=== PATIENT | male | born 1970 | race Caucasian/White ===

== ENCOUNTER → 2021-02-10 13:33 | Outpatient (BNVA) | payer OTHER, SELFPAY | PROVIDERS: PCP Internal Medicine; Visit Provider Surgery | DX: K64.5 Perianal venous thrombosis (principal) | CPT/HCPCS: 46600 ==

== ENCOUNTER 2023-11-01 11:33 | Emergency (ER) | payer BC, SELFPAY ==
--- NOTE | ~2023-11-01 | CT_ITS ---
EXAMINATION: CT ABDOMEN AND PELVIS WITHOUT CONTRAST CLINICAL INFORMATION: Flank pain COMPARISON: None available. TECHNIQUE: Multidetector volumetric imaging was performed from the superior aspect of the liver through the pubic symphysis. Sagittal and coronal reformatted images were obtained on the technologist's workstation. This CT examination was performed using dose optimization techniques as appropriate, variously including the following: *Automated exposure control *Adjustment of mA and/or kV according to patient size (this includes techniques or standardized protocols for targeted exams where dose is matched to indication/reason for exam; i.e. extremities or head) *Use of iterative reconstruction technique DLP: 428 mGy-cm FINDINGS: LUNG BASES: There is a 5 mm nodule in the lingula (4:48). The visualized lung bases are otherwise unremarkable. LIVER, GALLBLADDER, AND BILIARY TREE: The liver is normal in size, shape, and attenuation. 0.9 cm water density cyst is noted in the right lobe of the liver (3:12). No concerning solid focal hepatic lesion or biliary ductal dilatation is present. The gallbladder is unremarkable with no evidence of radiopaque gallstones, gallbladder wall thickening, or obvious pericholecystic inflammatory changes. PANCREAS: Unremarkable. SPLEEN: Unremarkable. ADRENAL GLANDS: Unremarkable. KIDNEYS AND URETERS: There is right-sided pelvocaliectasis with dilatation of the ureter down to the level of an obstructing stone at the right UVJ which measures 2 mm. No intrarenal calculi. A benign right upper pole 1.6 cm Bosniak class I renal cyst is noted which requires no additional imaging or follow up. No solid renal masses are seen on either side. The left kidney and ureter appear unremarkable aside from presence of a faint tiny hyperattenuating area in the left mid kidney (see noguera image). BLADDER: Unremarkable. GASTROINTESTINAL TRACT: The small and large bowel are unremarkable. The appendix is unremarkable and filled with some dense material. Air is present as well and there are no inflammatory changes. ABDOMINAL WALL: No significant hernia is appreciated. LYMPH NODES: Normal. VASCULAR: Minimal calcific atherosclerotic changes are present in the aorta and iliofemoral vessels. There is no evidence of an abdominal aortic aneurysm. PELVIC VISCERA: Mild BPH. Seminal vesicles appear normal. OSSEOUS STRUCTURES: Unremarkable. CT/CT abdomen pelvis wo IV con IMPRESSION: 1. Obstructing 2 mm right UVJ calculus with right-sided uretero-pelvocaliectasis. 2. Incidental note made of a 5 mm lingular nodule, benign hepatic cyst, benign right renal cyst which needs no additional imaging or follow up, mild BPH and minimal calcific atherosclerotic changes. According to the UPDATED 2017 Fleischner Society recommendations, the advised follow-up imaging for solid nodules <6 mm in the middle/lower lobes is no routine follow up.
[2023-11-01 11:42] VITALS: BP 156/79; PULSE 65; RESP 18; TEMP 36.6; O2SAT 98; BMI 23.4
--- NOTE | 2023-11-01 11:43 | ED.GENADULT ---
HPI - General Adult General Chief complaint: Urogenital-Male Stated complaint: Kidney pain Time Seen by Provider: 11/01/23 13:20 Source: patient Mode of arrival: ambulatory Limitations: no limitations History of Present Illness HPI narrative: Patient is a 53-year-old male presenting to the emergency department with complaint of severe right flank pain which began last night as well as dark urine and urinary frequency. States he felt like a UTI was coming on for a few days. Also reports syncopal episode related to severe pain. Denies any vomiting or diarrhea but does report nausea. Denies fevers. Denies history of kidney stones. MD complaint: flank pain Onset (ago): hour(s) Location: right Severity: severe Severity scale (1-10): >10 Quality: sharp Pain Consistency: constant Relieving factors: none Exacerbating factors: none Treatments prior to arrival: none Related Data Home Medications Medication Instructions Recorded Confirmed atorvastatin 10 mg tablet 10 mg PO DAILY 02/10/21 bupropion HCl 150 mg 24 hr tablet, 150 mg PO BEDTIME 02/10/21 extended release escitalopram oxalate 10 mg tablet mg PO 02/10/21 Previous Rx's Medication Instructions Recorded ondansetron 4 mg disintegrating 4 mg PO Q8H PRN nausea and 11/01/23 tablet vomiting #12 tabs oxycodone 5 mg tablet 5 mg PO Q8H PRN severe pain (scale 11/01/23 score 7-10) #10 tabs prednisone 20 mg tablet 20 mg PO DAILY #4 tabs 11/01/23 tamsulosin 0.4 mg capsule 0.4 mg PO DAILY #14 caps 11/01/23 Allergies Allergy/AdvReac Type Severity Reaction Status Date / Time No Known Allergies Allergy Verified 11/01/23 11:42 Review of Systems Review of Systems: As per HPI. Yes all other systems are reviewed and are negative Constitutional: Constitutional: Reports as per HPI PMF Past Medical History Onset Date is defined in the Problem List Problems that require an onset date and time if occurred within 24 hrs of arrival to the ED Aortic Dissection and Rupture; Neurologic impairment; Cardiopulmonary Arrest; Endotracheal Intubation; Insertion or Replacement of Mechanical Circulatory Assist Device Medical History (Updated 11/01/23 @ 16:14 by Nancy Siddiqi NP) Thrombosed external hemorrhoid Family History Family History (Updated 02/10/21 @ 13:48 by LUCIA Agosto) Mother Lung cancer Social History Social History (Updated 02/10/21 @ 13:48 by LUCIA Agosto) Alcohol intake: current Alcohol intake frequency: holidays/special occasions only Smoked in Last 30 Days: No Use of substances other than those prescribed or required for medical reasons: No Advance Directives: No Advance Directives Information Provided: Yes Physical Exam ED Vital Signs: Vital Signs - 24 hr 11/01/23 11:42 11/01/23 14:36 Temperature 98 F 97.7 F Pulse Rate 65 68 Respiratory Rate 18 16 Blood Pressure 156/79 H 139/70 Pulse Oximetry 98 98 Oxygen Delivery Method Room Air Room Air BMI result Body Mass Index 23.4 Vital signs have been reviewed and appear to be correct. Blood pressure elevated. Heart rate normal. Respiratory rate normal. Temperature normal. Oxygen saturation normal. Const General: cooperative, healthy appearing and no acute distress Orientation/consciousness: oriented to person, oriented to place, oriented to time and patient oriented x3 Limitations: no limitations HENMT Head: Yes normocephalic and Yes atraumatic Ears: external ears normal General nose exam: Normal external nose present Face and sinus: Yes face symmetric Mouth: oropharynx normal and moist mucous membranes Throat: Yes uvula midline Eyes Pupils: Equal, round and reactive pupils present Neck Neck: Yes normal visual inspection and Yes supple Resp Effort & Inspection: normal respiratory effort and able to speak in complete sentences Auscultation: clear to auscultation bilaterally Cardio Rate: regular rate Rhythm: regular rhythm Heart sounds: S1 normal heart sound present and S2 normal heart sound present GI Palpation (GI): Soft to palpation and nontender Auscultation: normoactive bowel sounds General: Yes CVA tenderness on the right Back/Spine/Pelvis Back: CVA tenderness Skin General skin exam: elasticity normal and turgor normal Neuro General: oriented to person, oriented to place, oriented to time, patient oriented x3, moves all extremities, no focal motor deficits and CN's II-XI intact bilaterally Cranial nerves: Yes Equal, round and reactive pupils present Cognition (Neuro): normal cognition Extrem General: Yes full ROM, Yes no pedal edema and Yes no calf tenderness Psych Mental Status: mental status grossly normal Affect: normal affect Thought process: Normal thought process present Course Course Course Narrative: RME performed by Elaina Boucher PA-C. Patient is a 53 year old assigned male at presenting to the emergency department with right flank pain and increased urinary frequency. Detailed physical exam and review of systems are deferred to the math professor. Labs and imaging ordered. Patient placed back in the waiting room pending room availability and results. Medications Administered Discontinued Medications Generic Name Dose Route Start Last Admin Trade Name Freq PRN Reason Stop Dose Admin Sodium Chloride 1,000 mls @ 999 mls/hr 11/01/23 13:30 11/01/23 14:14 Ns IV 11/01/23 14:30 999 mls/hr .Q1H1M DANIEL Administration Ketorolac Tromethamine 15 mg 11/01/23 13:21 11/01/23 14:12 Ketorolac Tromethamine 15 Mg/Ml Vial IVPUSH 11/01/23 13:22 15 mg ONCE ONE Administration Ondansetron HCl 4 mg 11/01/23 13:21 11/01/23 14:13 Ondansetron Hcl 4 Mg/2 Ml Vial IVPUSH 11/01/23 13:22 4 mg ONCE ONE Administration Prednisone 20 mg 11/01/23 13:31 11/01/23 14:15 Prednisone 20 Mg Tablet PO 11/01/23 13:32 20 mg ONCE ONE Administration Tamsulosin HCl 0.4 mg 11/01/23 13:31 11/01/23 14:31 Tamsulosin Hcl 0.4 Mg Capsule PO 11/01/23 13:32 0.4 mg ONCE ONE Administration Medical Decision Making Medical Decision Making MDM Narrative: Patient is a 53-year-old male presenting to the emergency department with complaint of severe right flank pain which began last night as well as dark urine and urinary frequency. On exam patient is awake, A+Ox3, VS WNL, afebrile, normal neurological exam without focal deficits, physical exam findings as above. Given reported symptoms and physical exam findings, initial differential includes UTI, pyelonephritis, renal colic. Do not suspect pneumonia. Labs notable for no leukocytosis, no anemia, no evidence of KAVYA, LFTs grossly within normal limits. UA notable for 3+ blood, no evidence of infection. CT notable for 2 mm obstructing calculi at right UVJ. My interpretation is in agreement with the radiologist's interpretation. Results discussed with patient and all questions answered. Will treat with Toradol, Zofran, IV fluids, prednisone, tamsulosin. Patient states that he already sees [facility], will follow up with them. 16:10 Patient reports pain has improved, currently rates at 4/10 and states that he feels comfortable with discharge home at this level. Will prescribe Zofran, oxycodone, prednisone, Zosyn. Instructed patient to follow-up with his urologist. Return precautions discussed at bedside. Patient verbalized understanding of and agreement with plan. Differential Diagnosis Differential Diagnoses: The differential diagnosis associated with the presentation includes As per [facility]. Lab Data [facility] Lab Attestation statement: I reviewed the patient's lab results. As per [facility] 11/01/23 12:12 11/01/23 12:12 Labs: Lab Results 11/01/23 Range/Units 12:12 WBC 5.5 (4.8-10.8) X10*3/uL RBC 4.77 (4.60-5.80) X10*6/uL Hgb 14.4 (14.0-18.0) g/dl Hct 42.2 (42.0-52.0) % MCV 88.5 (80.0-98.0) fL MCH 30.2 (27.0-33.0) pg MCHC 34.1 (31.0-36.0) g/dl RDW 13.0 (11.0-16.0) % Plt Count 280 (160-400) X10*3/uL MPV 8.7 L (9.4-12.4) fL Immature Gran % (Auto) 0.2 (0.0-0.4) % Neut % (Auto) 59.9 (45-73) % Lymph % (Auto) 28.0 (20-40) % [place] % (Auto) 10.2 (2-11) % Eos % (Auto) 1.3 (0-4) % Baso % (Auto) 0.4 (0-2) % Lymph # (Auto) 1.5 (1.2-4.9) X10*3/uL [place] # (Auto) 0.6 (0.1-1.2) X10*3/uL Eos # (Auto) 0.1 (0.0-0.4) X10*3/uL Baso # (Auto) 0.0 (0.0-0.2) X10*3/uL Abs Immat Gran (auto) 0.01 (0.00-0.03) X10*3/uL Absolute Neuts (auto) 3.3 (2.0-8.3) x10*3/uL Absolute Nucleated RBC 0.000 (0.0-0.012) X10*3/uL Nucleated RBC % (auto) 0.0 (0.0-0.2) /100WBC Sodium 136 (135-145) mmol/L Potassium 4.3 (3.3-5.1) mmol/L Chloride 103 (96-108) mmol/L Carbon Dioxide 28 (22-29) mmol/L Anion Gap 9 L (12-20) BUN 17 H (9-16) mg/dL Creatinine 1.23 (0.5-1.4) mg/dL Estim Creat Clear Calc 65.6 Estimated GFR > 60 Random Glucose 90 (60-115) mg/dL Calcium 9.4 (8.4-10.2) mg/dL Magnesium 2.2 (1.6-2.6) mg/dL Total Bilirubin 0.7 (0.0-1.0) mg/dL AST 34 (5-37) U/L ALT 43 H (0-40) U/L Alkaline Phosphatase 80 (39-117) U/L Total Protein 7.2 (6.5-8.0) g/dL Albumin 4.4 (3.5-5.0) g/dL Lipase 19 (8-78) U/L Urine Color Yellow Urine Appearance Cloudy Urine pH 6.0 (5.0-9.0) Ur Specific [place] 1.015 (1.005-1.025) Urine Protein 30 (1+) H (Neg-Trace) mg/dL Urine Glucose (UA) Negative (Negative) mg/dL Urine Ketones Negative (Negative) mg/dL Urine Blood Large (3+) H (Negative) Urine Nitrite Negative (Negative) Ur Leukocyte Esterase Negative (Negative) Urine RBC >20 H (0-2) /HPF Urine WBC 0-5 (0-5) /HPF Ur Squamous Epith Cells 0-2 (0-2) /HPF Urine Bacteria None Seen (None Seen) Hyaline Casts 0-2 (0-2) /LPF Independent Interpretation I performed an independent interpretation of an: CT Scan Interpretation: 2mm obstructing stone at R UVJ Radiology Impression Discussion of test interpretation with radiology: I have reviewed the radiologist's reading. Radiologist Impression: CT/CT abdomen pelvis wo IV con IMPRESSION: 1. Obstructing 2 mm right UVJ calculus with right-sided uretero-pelvocaliectasis. 2. Incidental note made of a 5 mm lingular nodule, benign hepatic cyst, benign right renal cyst which needs no additional imaging or follow up, mild BPH and minimal calcific atherosclerotic changes. According to the UPDATED 2017 Fleischner Society recommendations, the advised follow-up imaging for solid nodules <6 mm in the middle/lower lobes is no routine follow up. External Record Review External record reviewed: Inpatient record, Office record and Outpatient record Prescription Management I considered prescription management with: Pain Medication and Other Discharge Plan Discharge Clinical Impression: Calculus of distal right ureter Patient Disposition: Home, Self-Care Instructions: Low Oxalate Diet (ED), How to Strain Your Urine (ED), Ureteral Stones (ED) Additional Instructions: You were evaluated in the emergency department for flank pain. Your CT scan showed evidence of a stone in your right ureter. The stone is 2 mm which should pass on its own. Your are being provided with a urine strainer to use at home, instructions are included in your discharge paperwork. You are being prescribed prednisone to decrease inflammation, tamsulosin to allow the stone to pass more easily, ondansetron for nausea, and oxycodone as needed for severe pain. You can also take 600 mg of ibuprofen every 6 hours as needed for pain. Please follow up with your urologist ([facility]). Return to the emergency department if you develop worsening pain, persistent vomiting, fever 100.4? or greater, inability to urinate, or any other concerning symptoms. Prescriptions: New ondansetron 4 mg tablet,disintegrating 4 mg PO Q8H PRN (Reason: nausea and vomiting) Qty: 12 0RF tamsulosin 0.4 mg capsule 0.4 mg PO DAILY Qty: 14 0RF prednisone 20 mg tablet 20 mg PO DAILY Qty: 4 0RF oxycodone 5 mg tablet 5 mg PO Q8H PRN (Reason: severe pain (scale score 7-10)) Qty: 10 0RF Rx Instructions: Partial Fill upon patient request. No Action atorvastatin 10 mg tablet 10 mg PO DAILY bupropion HCl 150 mg tablet extended release 24 hr 150 mg PO BEDTIME escitalopram oxalate 10 mg tablet PO
[2023-11-01 12:21] LABS: MANUAL DIFF FLAG NO
[2023-11-01 12:26] LABS: Basophils Percent Auto 0.4 % (0-2); Eosinophils Absolute Auto 0.1 X10*3/uL (0.0-0.4); Eosinophils Percent Auto 1.3 % (0-4); Hematocrit 42.2 % (42.0-52.0); Hemoglobin 14.4 g/dl (14.0-18.0); Imm Gran Abs Auto 0.01 X10*3/uL (0.00-0.03); Imm Gran Pct Auto 0.2 % (0.0-0.4); Lymphocytes Absolute Auto 1.5 X10*3/uL (1.2-4.9); Mean Corpuscular HGB Conc 34.1 g/dl (31.0-36.0); Mean Corpuscular Hemoglobin 30.2 pg (27.0-33.0); Mean Corpuscular Volume 88.5 fL (80.0-98.0); Mean Platelet Volume 8.7 fL (9.4-12.4); Monocytes Absolute Auto 0.6 X10*3/uL (0.1-1.2); Monocytes Percent Auto 10.2 % (2-11); Neutrophils Absolute Auto 3.3 x10*3/uL (2.0-8.3); Neutrophils Percent Auto 59.9 % (45-73); Platelet Count 280 X10*3/uL (160-400); Red Blood Count 4.77 X10*6/uL (4.60-5.80); White Blood Count 5.5 X10*3/uL (4.8-10.8)
[2023-11-01 12:28] LABS: Appearance Urine Cloudy; Color Urine Yellow; Glucose Urine UA Negative (Negative); Leukocyte Esterase Urine Negative (Negative); Nitrite Urine Negative (Negative); Specific Gravity - Urine 1.015 (1.005-1.025); UMIC TRIGGER UACC YES; Urine Blood Large (3+) (Negative); Urine Ketones Negative (Negative); Urine Protein 30 (1+) mg/dL (Neg-Trace)
[2023-11-01 12:34] LABS: Bacteria Urine None Seen (None Seen); Hyaline Casts Urine 0-2 /LPF (0-2); RBC Urine >20 /HPF (0-2); Squamous Epithelial Cell Urine 0-2 /HPF (0-2); WBC Urine 0-5 /HPF (0-5)
[2023-11-01 12:38] LABS: Alanine Aminotransferase 43 U/L (0-40); Albumin Level 4.4 g/dL (3.5-5.0); Alkaline Phosphatase 80 U/L (39-117); Anion Gap 9 (12-20); Aspartate Amino Transferase 34 U/L (5-37); Bilirubin Total 0.7 mg/dL (0.0-1.0); Blood Urea Nitrogen 17 mg/dL (9-16); Calcium 9.4 mg/dL (8.4-10.2); Carbon Dioxide 28 mmol/L (22-29); Chloride 103 mmol/L (96-108); Creatinine Clr Calc Pharmacy 65.6; Estimated Glomerular Filt Rate > 60; Glucose Random 90 mg/dL (60-115); Lipase 19 U/L (8-78); Magnesium 2.2 mg/dL (1.6-2.6); Potassium 4.3 mmol/L (3.3-5.1); Sodium 136 mmol/L (135-145); Total Protein 7.2 g/dL (6.5-8.0)
[2023-11-01] MEDS: Ketorolac Tromethamine 15 MG/ML VIAL IVPUSH (14:12)
[2023-11-01] MEDS: ondansetron HCL 4 MG/2 ML VIAL IVPUSH (14:13)
[2023-11-01] MEDS: 0.9 % Sodium Chloride 1,000 ML 999 ML IV (14:14)
[2023-11-01] MEDS: predniSONE 20 MG TABLET PO (14:15)
[2023-11-01] MEDS: Tamsulosin HCL 0.4 MG CAPSULE PO (14:31)
[2023-11-01 14:36] VITALS: BP 139/70; PULSE 68; RESP 16; TEMP 36.5; O2SAT 98
[2023-11-01 16:33] VITALS: BP 127/68; PULSE 78; RESP 16; TEMP 36.5; O2SAT 98
== END 2023-11-01 16:36 | disposition home or self-care (01) ==
PROVIDERS: Physician Assistant Medical; Emergency Provider Emergency Medicine; PCP Internal Medicine
DX: N13.2 Hydronephrosis with renal and ureteral calculous obstruction (principal)
CPT/HCPCS: 36415; 74176; 80053; 81001; 83690; 83735; 85025; 96374; 96375; 99284; 99285; J1885; J2405

== ENCOUNTER 2024-10-30 10:22 | Outpatient (AMB) | payer OTHER, SELFPAY ==
--- NOTE | 2024-10-30 10:24 | A.OFFVIS_ITS ---
Vital Signs 10/30/24 10:26 Height 5 ft 8 in Weight 158 lb 14.999 oz BMI 24.2 BP 124/81 Blood Pressure Location Lt brachial Position Sitting Pulse 57 Intake Visit Reasons: Worsening reflux Intake Note: Remberto presents in the office as a new patient for Worsening Reflux. CC: He states that he has tried taking OTC medications but nothing seems to be working. No pains in the stomach. No irregular bowel movements. HE states he has noticed that it occurs even when he has had nothing to eat. Does not notice anything that seems to trigger it. Human Factors Scientist Required: No Allergies No Known Allergies Allergy (Verified 10/30/24 10:27) HPI Comments Details: 54 y.o M with PMH of kidney stones, hemorrhoids, who is here for worsening ref lux. Reports has had longstanding GERD which he would manage with diet and OTC meds. For the last year sx more frequent so started famotidine that didnt help at all. Pt was then prescribed omeprazole which also was not helpful. Sx occur at least 2-3 times a week, occur mostly in the middle of the day. Has noticed some assoc with bread. NO fam hx of esophageal or gastric ca. Former smoker quit 20 years ago. EtOH use 2-3 times a week. NO fam hx of colon cancer. Colonoscopy 2022: no polyps per pt report. [facility] Medical History (Updated 10/30/24 @ 11:32 by Juliana Pena MD) Thrombosed external hemorrhoid Surgical History (Updated 10/30/24 @ 10:27 by LUCIA Anderson) Hx of colonoscopy Family History Mother Lung cancer Social History Alcohol intake: current Alcohol intake frequency: holidays/special occasions only Review of Systems Const All systems reviewed & are unremarkable except as noted in HPI and below Physical Exam Vital Signs: Last Vital Signs Pulse 57 10/30/24 10:26 BP 124/81 10/30/24 10:26 BMI result Body Mass Index 24.2 No apparent distress Nonicteric Abdomen soft, nondistended Alert and oriented x3, normal gait Assessment & Plan Assessment & Plan (1) Abdominal pain: Code(s): R10.9 - Unspecified abdominal pain Category: Medical (2) GERD (gastroesophageal reflux disease): Code(s): K21.9 - Gastro-esophageal reflux disease without esophagitis Category: Medical Plan Ddx includes GERD with poor response to omeprazole ? rapid metabolizer, infectious esophagitis, cholelithiasis, EoE or celiac celso as sx correlation with certain NONacidic foods such as bread. Plan: - Switch to Rabeprazole 20 mg once daily - Barium swallow - US abd - EGD to be booked - Labs ordered Follow up after EGD Orders: Orders Transglutaminase IgA Today R10.9 - Unspecified abdominal pain FL barium swallow Today K21.9 - Gastro-esophageal reflux disease without esophagitis US abdomen complete Today R10.9 - Unspecified abdominal pain Complete Blood Count no Diff Today R10.9 - Unspecified abdominal pain Immunoglobulin A Today R10.9 - Unspecified abdominal pain Liver Panel Today R10.9 - Unspecified abdominal pain Medications: New rabeprazole 20 mg (2 x 10 mg) PO DAILY 180 caps 0RF 90 days Coding Level of Care Code New Pt Level 4 (17489) Diagnoses Abdominal pain R10.9 GERD (gastroesophageal reflux disease) K21.9
[2024-10-30 10:26] VITALS: BP 124/81; PULSE 57; BMI 24.2
--- OUTSIDE RECORDS SUMMARY | 2024-10-30 10:49 | XMS_ITS | Continuity of Care Document ---
Author Organization [facility] Michael lt Address [address] [place] [address]- Care Team Providers Care Nanotechnician Name Role Phone Crissy KEARNS, Rusty Beltran Primary Care Physician Encounter [facility] Date(s): 09/20/24 - 10/20/24 [facility] Adult [address] [place] [address]- Encounter Type: Triage Allergies, Adverse Reactions, Alerts No Known Allergies Immunizations Given and Recorded Vaccine Date Status Refusal Reason influenza virus vaccine, inactivated 1 07/27/24 Gi arik influenza virus vaccine, inactivated 08/13/23 Marc rded influenza virus vaccine, inactivated 07/17/22 Marc rded influenza virus vaccine, inactivated 2 07/28/21 Gi arik influenza virus vaccine, inactivated 07/26/20 Give n influenza virus vaccine, inactivated 08/03/19 Marc rded influenza virus vaccine, inactivated 10/07/18 Give n influenza virus vaccine, inactivated 3 07/12/17 Re corded influenza virus vaccine, inactivated 11/14/15 Give n influenza virus vaccine, inactivated 07/30/14 Marc rded influenza virus vaccine, inactivated 07/13/14 Marc rded influenza virus vaccine, inactivated 10/24/13 Marc rded influenza virus vaccine, inactivated 4 10/21/13 Gi arik SARS-CoV-2(COVID-19)mRNA-LNP vac([id number]) 08/13/23 Recorded [id number] bivalent booster vax 12/21/22 Recorded SARS-CoV-2 mRNA ([id number]) vax 05/07/22 Recorded tetanus-diphtheria toxoids (Td) 11/26/21 Given SARS-CoV-2 (COVID-19) mRNA BNT-162b2 vac 08/25/21 Recorded SARS-CoV-2 (COVID-19) mRNA BNT-162b2 vac 02/03/21 Recorded SARS-CoV-2 (COVID-19) mRNA BNT-162b2 vac 01/13/21 Recorded zoster vaccine, inactivated 12/23/19 Recorded zoster vaccine, inactivated 08/03/19 Recorded Fluzone Preservative-Free (oldterm) 5 07/05/12 Giv en Tet/Diphth/Acel, Pertussis (oldterm) 01/08/12 Give n 1Result Comment: Flu Regular Dose [facility]: [id number] 2Result Comment: [facility]# ON THE [address] [id number] 3Result Comment: [07/14/2017] roman 4Admin Note: Roman 5Admin Note: vis given Medications atorvastatin 10 mg oral tablet 1 tablet, By Mouth, Daily, # 90 tablet, 3 Refills, Maintenance, 09/20/24 9:20:00 AM EST, [facility], 172, cm, 07/27/24 13:48:00 EDT, Height Start Date: 09/20/24 Status: Ordered Quantity: 90.0 Unit: tablet Repeat number: 1 buPROPion 150 mg/24 hours (XL) oral tablet, extended release 1 tablet, By Mouth, Daily, # 90 tablet, 1 Refills, 05/26/24 3:25:00 PM EDT, [facility], 90,1 tablet By Mouth Daily, 172, cm, 09/14/23 14:00:00 EST, Height Start Date: 05/26/24 Status: Ordered Quantity: 90.0 Unit: tablet Repeat number: 2 emtricitabine-tenofovir disoproxil 200 mg-300 mg oral tablet 1 tablet, By Mouth, Daily, # 90 tablet, 1 Refills, 08/07/24 11:44:00 AM EDT, [facility], 90, 1 tablet By Mouth Daily, 172, cm, 07/27/24 13:48:00 EDT, Height Start Date: 08/07/24 Status: Ordered Quantity: 90.0 Unit: tablet Repeat number: 2 escitalopram 10 mg oral tablet 1 tablet = 10 mg, By Mouth, Daily, # 90 tablet, 1 Refills, Maintenance, 05/26/24 3:25:00 PM EDT, [facility], 172, cm, 09/14/23 14:00:00 EST, Height Start Date: 05/26/24 Status: Ordered Quantity: 90.0 Unit: tablet Repeat number: 2 montelukast 10 mg oral tablet 1, tablet, By Mouth, Daily in PM, # 90 tablet, Refills 1, Maintenance, 08/05/24 12:07:00 PM EDT, Route to Pharmacy Electronically, [facility], 172, cm, 07/27/24 13:48:00 EDT, Height Start Date: 08/05/24 Status: Ordered Quantity: 90.0 Unit: tablet Repeat number: 1 Problem List Condition Confirmation Course Effective Dates Status Health Status Informant Allergic Rhinitis Confirmed 02/14/13 Active Chronic sinusitis Confirmed Active Throat clearing Confirmed Active Acid reflux Confirmed Active ANGIE (generalized anxiety disorder) Confirmed Active Hypercholesterolemia Confirmed Active Nephrolithiasis Confirmed Active Mitral valve prolapse Confirmed Active Depression, major, recurrent, in complete remission Confirmed Active Spontaneous pneumothorax 1 Confirmed Active Vertigo Confirmed Active 1L 2018 Social History Social History Type Response Smoking Status Former smoker entered on: 12/05/13 Sex Sex Representation Male (finding) Patient Care team information Care Team Personnel Name: Brisa Cervantes RN Position: [facility] RN Member Role: Primary Care Nurse Name: Rusty Woodward MD Position: [facility] Physician - Primary Care Member Role: PCP Address: [address] [place] [phone]- Telecom: Care Team Related Persons Name: SOCORRO KIM Insurance Providers Guarantor name: OSMEL [facility] Information #: 1 Payer: [employer] Member Number: NA Policy Number: NA Group Number: NA
== END 2024-10-30 11:59 | disposition home or self-care (01) ==
PROVIDERS: PCP Internal Medicine; Visit Provider Internal Medicine
DX: R10.9 Unspecified abdominal pain (principal); K21.9 Gastro-esophageal reflux disease without esophagitis
CPT/HCPCS: 99204

== ENCOUNTER 2024-10-30 10:22 | Outpatient (REF) | payer OTHER, SELFPAY ==
[2024-10-30 12:27] LABS: Hematocrit 43.5 % (42.0-52.0); Hemoglobin 14.6 g/dl (14.0-18.0); Mean Corpuscular HGB Conc 33.6 g/dl (31.0-36.0); Mean Corpuscular Volume 89.5 fL (80.0-98.0); Mean Platelet Volume 8.8 fL (9.4-12.4); Platelet Count 257 X10*3/uL (160-400); Red Blood Count 4.86 X10*6/uL (4.60-5.80); Red Cell Distribution Width 12.7 % (11.0-16.0); White Blood Count 4.6 X10*3/uL (4.8-10.8)
[2024-10-30 12:52] LABS: Alanine Aminotransferase 79 U/L (0-40); Albumin Level 4.3 g/dL (3.5-5.0); Alkaline Phosphatase 77 U/L (39-117); Aspartate Amino Transferase 49 U/L (5-37); Bilirubin Direct 0.1 mg/dL (0.0-0.5); Bilirubin Total 0.4 mg/dL (0.0-1.0); Total Protein 7.3 g/dL (6.5-8.0)
[2024-10-31 19:18] LABS: Transglutaminase IgA <1.0 U/mL
[2024-11-03 23:14] LABS: Immunoglobulin A 513 mg/dL (47-310)
== END 2024-10-30 10:23 | disposition home or self-care (01) ==
LOC: HO.LAB 10:22
PROVIDERS: PCP Internal Medicine; Visit Provider Internal Medicine
DX: R10.9 Unspecified abdominal pain (principal); K21.9 Gastro-esophageal reflux disease without esophagitis
CPT/HCPCS: 36415; 80076; 82784; 85027; 86364

== ENCOUNTER 2024-11-22 08:54 | Outpatient (REF) | payer OTHER, SELFPAY ==
--- NOTE | ~2024-11-22 | US_ITS ---
CLINICAL HISTORY: R10.9 - Unspecified abdominal pain US abdomen complete Comparison: None Findings: The visualized pancreas is normal. The aorta and inferior vena cava are normal caliber. The liver is normal in size and echotexture. There is no intrahepatic bile duct dilatation. The common duct is 2.3 mm in diameter. The gallbladder is normal. There is no sonographic Loza sign. The main portal vein is antegrade. The right kidney is 9.6 cm in length. 1.4 x 1.3 x 1.4 cm upper pole cyst. The left kidney is 9.9 cm in length. The spleen is normal. No ascites. IMPRESSION: Unremarkable abdominal ultrasound. This document has been electronically signed by: Addy Lobo MD on 11/22/2024 16:08:39
== END 2024-11-22 08:55 | disposition home or self-care (01) ==
LOC: HO.HMGCX 08:54
PROVIDERS: PCP Internal Medicine; Visit Provider Internal Medicine
DX: R10.9 Unspecified abdominal pain (principal)
CPT/HCPCS: 76700

== ENCOUNTER → 2024-11-22 08:58 | Outpatient (BNV) | payer OTHER, SELFPAY | PROVIDERS: PCP Internal Medicine; Visit Provider Nuclear Medicine | DX: R10.9 Unspecified abdominal pain (principal) | CPT/HCPCS: 76700 ==